=== PATIENT | male | born 1995 | race Two or more races ===

== ENCOUNTER 2018-11-29 02:46 | Emergency (ER) | payer MEDICAID ==
[~2018-11-29] VITALS: Ht 170.2 cm; Wt 73.9 kg
[2018-11-29] MEDS ORDERED: TDAP [DIPH/PERTUSSIS/TET] 0.5 ML VIAL IM ONE ×2 (03:00→03:02)
[2018-11-29] MEDS ORDERED: MORPHINE SULFATE INJ 10 MG/ML DISP.SYRIN IV ONE (03:00)
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
[2018-11-29] MEDS ORDERED: MORPHINE SULFATE INJ 4 MG/ML DISP.SYRIN ONE (03:02)
[2018-11-29] MEDS ORDERED: ONDANSETRON HCL/PF 4 MG/2 ML VIAL ONE (03:07)
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
[2018-11-29 03:18] LABS: BASOPHILS % (AUTO) 0.3 % (0.0-2.0); EOSINOPHILS % (AUTO) 0.5 % (0.0-6.0); HEMATOCRIT 47 % (39-51); HEMOGLOBIN 16.2 g/dL (13.5-17.5); LYMPHOCYTES # (AUTO) 3.1 /CMM (0.8-4.8); LYMPHOCYTES % (AUTO) 22.4 % (20.0-44.0); MEAN CORPUSCULAR HGB CONC 35 g/dl (31.0-36.0); MEAN CORPUSCULAR VOLUME 88 fL (80-96); MONOCYTES % (AUTO) 7.4 % (2.0-12.0); NEUTROPHILS # (AUTO) 9.6 /CMM (1.8-8.9); NEUTROPHILS % (AUTO) 69.4 % (43.0-81.0); PLATELET COUNT (AUTO) 295 /CMM (150-450); RED BLOOD CELL COUNT(AUTO) 5.29 MIL/uL (4.5-6.0); WHITE BLOOD COUNT (AUTO) 13.9 K/uL (4.3-11.0)
[2018-11-29 03:28] LABS: CALCIUM, SERUM 9.2 mg/dL (8.5-10.1); CREATININE 0.8 mg/dL (0.6-1.3); POTASSIUM 3.4 mmol/L (3.5-5.1)
[2018-11-29] MEDS ORDERED: ONDANSETRON HCL/PF - ER 4 MG/2 ML VIAL IV ONE (03:30)
--- NOTE | 2018-11-29 03:47 | NUR ---
PT ACCEPTED TO [facility] BY DR MADRIGAL.
--- NOTE | 2018-11-29 03:50 | NUR ---
[facility] CALLED FOR TRANSPORT ETA [id number]. TRIP# [id number]
[2018-11-29] MEDS ORDERED: IV NS 0.9% 1,000 ML IV PRN (05:00)
[2018-11-29 06:17] VITALS: BP 131/88
--- NOTE | 2018-11-29 06:29 | NUR ---
REPORT GIVEN TO BHAVIN JOHNSON AT [facility].
== END 2018-11-29 06:26 | disposition short-term general hospital (02) ==
LOC: ER 02:49
DX: T20.10XA Burn of first degree of head, face, and neck, unspecified site, initial encounter (principal); T24.131A Burn of first degree of right lower leg, initial encounter; T20.16XA Burn of first degree of forehead and cheek, initial encounter; T20.14XA Burn of first degree of nose (septum), initial encounter; T23.202A Burn of second degree of left hand, unspecified site, initial encounter; T23.201A Burn of second degree of right hand, unspecified site, initial encounter; F10.129 Alcohol abuse with intoxication, unspecified; X08.8XXA Exposure to other specified smoke, fire and flames, initial encounter; Y93.89 Activity, other specified; Y92.89 Other specified places as the place of occurrence of the external cause; Y99.8 Other external cause status; Y90.6 Blood alcohol level of 120-199 mg/100 ml
CPT/HCPCS: 36415; 80048; 80307; 85025; 90471; 90715; 96374; 96375; 99285; J2270; J2405; G0480